=== PATIENT | male | born 1975 | race Asian ===

== ENCOUNTER 2021-09-14 15:16 | Emergency (ER) | payer OTHER, SELFPAY ==
[2021-09-14 15:29] VITALS: BP 112/46; PULSE 98; RESP 18; TEMP 36.6; O2SAT 97; BMI 22.7
--- NOTE | 2021-09-14 16:59 | ED_ITS ---
HPI - Ear Problem General Chief complaint: Ear Problems Stated complaint: left ear pain bleeding Time Seen by Provider: 09/14/21 16:31 Source: patient Mode of arrival: ambulatory Limitations: language barrier History of Present Illness HPI Narrative: Translation by family member. 5 days ago he put the qtip in and developed a pain. He has been on polymyxin drops and debrox. Now with increased pain MD Complaint: ear pain Location: left ear Duration: constant Severity: moderate Context: trauma (QTip) Associated symptoms ear: headache and external ear tenderness Related Data Previous Rx's Medication Instructions Recorded naproxen 500 mg tablet (Naprosyn) 500 mg PO BID #20 tab 09/14/21 Allergies Allergy/AdvReac Type Severity Reaction Status Date / Time No Known Allergies Allergy Verified 09/14/21 15:32 Review of Systems Constitutional: Constitutional: Reports no additional constitutional complaints Eyes: Eyes: Reports no additional eye complaints ENT: Denies dizziness Cardiovascular: Cardiovascular: Reports no additional cardiovascular complaints Respiratory: Respiratory: Reports as per HPI Gastrointestinal: Gastrointestinal: Reports no additional gastrointestinal complaints Musculoskeletal: Musculoskeletal: Reports no additional musculoskeletal complaints Integumentary/Breasts: Skin/Breast: Denies rash Neurologic: Reports system reviewed and no additional complaints, except as documented, Denies dizziness and Denies Sensory deficit (Neuro) Psychiatric: Psychiatric: Denies anxiety [facility] Past Medical History Medical History (Updated 09/14/21 @ 17:11 by Kamran Gould MD) Diabetes Physical Exam Vital Signs: Vital Signs: Last Vital Signs Temp 98 F 09/14/21 15:29 Pulse 98 09/14/21 15:29 Resp 18 09/14/21 15:29 BP 112/46 L 09/14/21 15:29 Pulse Ox 97 09/14/21 15:29 BMI result Body Mass Index 22.7 Const: General: healthy appearing Nutritional Appearance: average body habitus Orientation/consciousness: oriented to person and patient oriented x3 Limitations: no limitations HENMT: Other: left otitis media with edema and erythema, TM intact Head: Yes normal to inspection General nose exam: Normal external nose present Mouth: Normal oral and palatal mucosa present and oropharynx normal Throat: Yes posterior oropharynx normal Eyes: General: appearance normal, both eyes and all related structures Neck: Other: supple Neck: Yes normal visual inspection Chest: Chest palpation & inspection: normal inspection of the chest Resp: Auscultation: clear to auscultation bilaterally Cardio: Jugular venous distension: no JVD Rate: regular rate Rhythm: regular rhythm Heart sounds: S1 normal heart sound present and S2 normal heart sound present GI: Inspection: Yes normal to inspection Palpation (GI): Soft to palpation, nontender and No hepatosplenomegaly present Auscultation: normal bowel sounds : General: Yes no CVA tenderness Back/Spine/Pelvis: Back: no CVA tenderness Skin: General skin exam: no rashes or lesions noted Neuro: General: oriented to person and patient oriented x3 Cranial nerves: Yes CN's II-XII intact bilaterally Motor exam (neuro): 5/5 motor strength present throughout Sensory Exam: No Sensory deficit (Neuro) Extrem: General: Yes normal to inspection Psych: Appearance: grossly normal Course Reevaluation(s) Reevaluation #1: Will have patient continue Polymyxin B and place him on antiinflammatory. Also gave patient a referral to Dr. Tse Time: 17:17 Discharge Plan Discharge Clinical Impression: Otitis externa Patient Disposition: Home, Self-Care Instructions: Otitis Externa (ED) Prescriptions: New naproxen [Naprosyn] 500 mg tablet 500 mg PO BID Qty: 20 0RF Referrals: Ilan Tse [Physician] - 5 days
== END 2021-09-14 17:19 | disposition home or self-care (01) ==
PROVIDERS: Emergency Provider Emergency Medicine
DX: H66.92 Otitis media, unspecified, left ear (principal); H92.02 Otalgia, left ear
CPT/HCPCS: 99281; 99282; 99283